=== PATIENT | female | born 1995 | race African-American/Black ===

== ENCOUNTER 2017-08-31 00:29 | Emergency (ER) | payer MEDICAID ==
[2017-08-31] MEDS ORDERED: ONDANSETRON 4 MG TAB.RAPDIS PO ONE (03:43)
[2017-08-31 04:30] LABS: ABSOLUTE LYMPHOCYTES (AUTO) 0.6 10^3/uL (0.5-4.7); ABSOLUTE MONOCYTES (AUTO) 0.4 10^3/uL (0.1-1.4); ABSOLUTE NEUT (AUTO) 6.7 10^3/uL (1.7-8.2); BASOPHILS % (AUTO) 0.3 % (0-2); EOSINOPHILS % (AUTO) 0.1 % (0-6); HEMATOCRIT 35.4 % (36.0-47.0); HEMOGLOBIN 11.8 g/dL (12.0-15.5); LYMPHOCYTES % (AUTO) 7.7 % (13-45); MEAN CORPUSCULAR HEMOGLOBIN 25.8 pg (27.0-33.4); MEAN CORPUSCULAR HGB CONC 33.2 g/dL (32.0-36.0); MEAN CORPUSCULAR VOLUME 78 fl (80-97); MONOCYTES % (AUTO) 4.7 % (3-13); PLATELET COUNT 280 10^3/uL (150-450); RED BLOOD COUNT 4.55 10^6/uL (3.72-5.28); RED CELL DISTRIBUTION WIDTH 14.2 % (11.5-14.0); SEGMENTED NEUTROPHILS % (AUTO) 87.2 % (42-78); TOTAL CELLS COUNTED % (AUTO) 100 %; WHITE BLOOD COUNT 7.7 10^3/uL (4.0-10.5)
[2017-08-31 04:36] LABS: APPEARANCE,URINE SLIGHTLY-CLOUDY; BILIRUBIN,URINE NEGATIVE (NEGATIVE); COLOR,URINE AMBER; GLUCOSE, URINE NEGATIVE (NEGATIVE); KETONES,URINE 80 mg/dL (NEGATIVE); LEUKOCYTE ESTERASE,URINE TRACE (NEGATIVE); NITRITE,URINE NEGATIVE (NEGATIVE); PROTEIN,URINE 30 mg/dL (NEGATIVE); URINE SPECIFIC GRAVITY 1.031
[2017-08-31 04:45] LABS: ALANINE AMINOTRANSFERASE 77 U/L (5-35); ALBUMIN 4.3 g/dL (3.7-5.6); ALKALINE PHOSPHATASE 62 U/L (50-135); ANION GAP 12 (5-19); ASPARTATE AMINO TRANSFERASE 47 U/L (5-30); BILIRUBIN,DIRECT 0.3 mg/dL (0.0-0.4); BILIRUBIN,TOTAL 0.4 mg/dL (0.2-1.3); BLOOD UREA NITROGEN 13 mg/dL (7-20); CALCIUM 10.2 mg/dL (8.4-10.2); CARBON DIOXIDE 24 mmol/L (22-30); CHLORIDE 103 mmol/L (98-107); GLUCOSE 85 mg/dL (75-110); LIPASE 67.8 U/L (23-300); POTASSIUM 4.9 mmol/L (3.6-5.0); SODIUM 138.9 mmol/L (137-145); TOTAL PROTEIN 7.6 g/dL (6.3-8.2)
[2017-08-31] MEDS ORDERED: NORMAL SALINE 1000 ML 1,000 ML IV ONE (05:45)
--- NOTE | 2017-08-31 05:52 | ER Document Report ---
ED General - General Chief Complaint: Abdominal Pain Stated Complaint: ABDOMINAL PAIN Time Seen by Provider: 08/31/17 03:40 Mode of Arrival: Ambulatory Information source: Patient Notes: 21-year-old female patient presents with abdominal pain and vomiting. Patient reports the pain is in her left lower quadrant and started yesterday. Patient reports that she had vomited 4 today. Patient denies any diarrhea but reports constipation. Patient denies any urinary symptoms and denies any fever. Patient reports that she is approximately 14 weeks . TRAVEL OUTSIDE OF THE [place] IN LAST 30 DAYS: No - Related Data Allergies/Adverse Reactions: No Known Allergies Allergy (Unverified 08/31/17 00:34) Past Medical History - General Information source: Patient - Social History Smoking Status: Never Smoker Chew tobacco use (# tins/day): No Frequency of alcohol use: None Drug Abuse: None Family History: Reviewed & Not Pertinent Patient has suicidal ideation: No Patient has homicidal ideation: No - Medical History Medical History: Negative Renal/ Medical History: Denies: Hx Peritoneal Dialysis Surgical Hx: Negative Review of Systems - Review of Systems Constitutional: No symptoms reported EENT: No symptoms reported Cardiovascular: No symptoms reported Respiratory: No symptoms reported Gastrointestinal: See HPI Genitourinary: No symptoms reported Female Genitourinary: No symptoms reported Musculoskeletal: No symptoms reported Skin: No symptoms reported Hematologic/Lymphatic: No symptoms reported Neurological/Psychological: No symptoms reported Physical Exam - Vital signs Vitals: Temp Pulse Resp BP Pulse Ox 99.3 F 108 H 16 126/74 H 99 08/31/17 00:35 08/31/17 00:35 08/31/17 00:35 08/31/17 00:35 08/31/17 00:35 - Notes Notes: PHYSICAL EXAMINATION: GENERAL: Well-appearing, well-nourished and in no acute distress. HEAD: Atraumatic, normocephalic. EYES: Pupils equal round and reactive to light, extraocular movements intact, conjunctiva are normal. ENT: Nares patent, oropharynx clear without exudates. Moist mucous membranes. NECK: Normal range of motion, supple without lymphadenopathy LUNGS: Breath sounds clear to auscultation bilaterally and equal. No wheezes rales or rhonchi. HEART: Regular rate and rhythm without murmurs ABDOMEN: Soft, nontender, nondistended abdomen. No guarding, no rebound. No masses appreciated. Female : No CVA tenderness Musculoskeletal: Normal range of motion, no pitting or edema. No cyanosis. NEUROLOGICAL: Cranial nerves grossly intact. Normal speech, normal gait. Normal sensory, motor exams PSYCH: Normal mood, normal affect. SKIN: Warm, Dry, normal turgor, no rashes or lesions noted. Course - Re-evaluation Re-evalutation: Otherwise healthy 21-year-old female presents with complaint of abdominal pain and vomiting. Patient reports abdominal pain is in the left lower quadrant has been present since yesterday. Patient's abdomen soft, mildly tender to left lower quadrant with no guarding, no rebound and no signs of peritonitis. CBC, comprehensive and lipase are all unremarkable. Patient with ketones in her urine patient patient reports vomiting 4 today. Will rehydrate patient with 1 L normal saline and provide patient with Zofran. Patient remains asymptomatic with stable vital signs. Patient reports that she is feeling much better after receiving the IV fluids. Patient will be discharged home with prescription for Zofran if needed. Patient reports that she has an appointment already established with her OB on Saturday. Patient will return to emergency department if she develops worsening abdominal pain, persistent vomiting or develops a fever with any of the above symptoms. - Vital Signs Vital signs: Temp Pulse Resp BP Pulse Ox 98.8 F 86 20 129/74 H 100 08/31/17 07:51 08/31/17 07:51 08/31/17 07:51 08/31/17 07:51 08/31/17 07:51 - Laboratory Result Diagrams: 08/31/17 04:00 08/31/17 04:00 Laboratory results interpreted by me: 08/31/17 08/31/17 08/31/17 04:00 04:00 04:00 Hgb 11.8 L Hct 35.4 L MCV 78 L MCH 25.8 L RDW 14.2 H Seg Neutrophils % 87.2 H Lymphocytes % 7.7 L AST 47 H ALT 77 H Urine Protein 30 H Urine Ketones 80 H Urine Urobilinogen 2.0 H Ur Leukocyte Esterase TRACE H Urine Ascorbic Acid 20 H Discharge - Discharge Clinical Impression: Dehydration Vomiting Qualifiers: Vomiting type: unspecified Vomiting Intractability: unspecified Nausea presence : unspecified Qualified Code(s): R11.10 - Vomiting, unspecified Condition: Stable Disposition: HOME, SELF-CARE Additional Instructions: Vomiting Vomiting (or nausea without vomiting) can be caused by many other different problems. It can mean that something's wrong with the stomach, such as ulcers or inflammation or the intestinal tract, such as appendicitis. But it can also be a symptom of a problem that has nothing to do with the stomach or intestines. Vomiting is common with severe headaches, earaches, tonsillitis, and kidney infections, etc. We see it with pneumonia or heart attacks. Drugs can cause nausea and vomiting. Many abdominal problems cause vomiting; for example, gallstones, kidney stones, pancreatitis, and intestinal obstruction ( blocked bowels). In most cases, curing the vomiting depends on fixing the problem that caused it. For temporary relief, we may use an anti-nausea medicine. For home use, we can prescribe suppositories, chewable pills, pills that dissolve in the mouth, or liquid anti-nausea drugs. If the vomiting seems to be caused by a problem in the stomach, acid-suppressing drugs may be prescribed as well. It's important to avoid dehydration. Sip small amounts of clear liquids ( soft drinks, tea, broth, etc) . Try to take fluids frequently even if you are vomiting to prevent dehydration. Take increasing amounts of fluid and when liquids are being consumed successfully, advance to small amounts of bland food (toast, soups, mashed potatoes, etc.) until you are able to resume a regular diet. Avoid aspirin, tobacco, and alcohol. If the vomiting worsens, if the problem that's making you vomit worsens, or if there's evidence of bleeding in the stomach (such as black, tarry stool, or bloody or black vomit), you should return immediately. Also, return if abdominal pain worsens or becomes localized to one area or you develop high fever. Call your doctor if you aren't improved in 24 hours. Intravenous (IV) Fluids As part of your care today, you received intravenous (IV) fluids. IV fluids are administered to patients who are dehydrated or to those who have certain chemical (electrolyte) abnormalities that need correcting. Please increase the fiber in your diet. Please be sure to drink plenty of fluids. Please follow-up with your ENROLLED NURSE next week for follow-up. Please return to the emergency department if you develop worsening abdominal pain, fever or vomiting to the point where you are unable to hold any fluids down. Prescriptions: Ondansetron [Zofran Odt 4 mg Tablet] 1 - 2 tab PO Q4H PRN #15 tab.rapdis PRN Reason: For Nausea/Vomiting Referrals: MURIEL VALLADARES MD [Primary Care Provider] - Follow up as needed
[2017-08-31 08:00] VITALS: BP 129/74
== END 2017-08-31 08:00 | disposition home or self-care (01) ==
LOC: ER 00:29
DX: O21.9 Vomiting of pregnancy, unspecified (principal); O99.280 Endocrine, nutritional and metabolic diseases complicating pregnancy, unspecified trimester; E86.0 Dehydration; O99.619 Diseases of the digestive system complicating pregnancy, unspecified trimester; K59.00 Constipation, unspecified; O26.899 Other specified pregnancy related conditions, unspecified trimester; R10.32 Left lower quadrant pain; Z3A.00 Weeks of gestation of pregnancy not specified
CPT/HCPCS: 99284; 96360; 36415; 83690; 85025; 80053; 81001; S0119; J7030

== ENCOUNTER 2018-05-10 00:52 | Emergency (ER) | payer MEDICAID ==
--- NOTE | 2018-05-10 03:07 | ER Document Report ---
ED General - General Chief Complaint: 4 Stated Complaint: COUGH Time Seen by Provider: 05/10/18 01:47 Primary Care Provider: MURIEL VALLADARES MD [Primary Care Provider] - Follow up as needed Notes: Patient is a 22-year-old female without chronic medical problems who presents with 24 hours of nasal congestion, cough and sputum production. She is here with her child with similar symptoms. She has not trying to improve her symptoms. Nothing is been noted to worsen her symptoms. Notes a history of similar symptoms in the past with upper respiratory infections. Has not seen her primary care doctor regarding today's concerns. Denies shortness of breath, fever or constitutional symptoms. TRAVEL OUTSIDE OF THE [place] IN LAST 30 DAYS: No - Related Data Allergies/Adverse Reactions: No Known Allergies Allergy (Unverified 08/31/17 00:34) Past Medical History - General Information source: Patient - Social History Smoking Status: Never Smoker Frequency of alcohol use: None Drug Abuse: None Lives with: Family Family History: Reviewed & Not Pertinent Renal/ Medical History: Denies: Hx Peritoneal Dialysis Review of Systems - Review of Systems Notes: Constitutional: Negative for fever. HENT: Negative for sore throat. Positive for nasal congestion Eyes: Negative for visual changes. Cardiovascular: Negative for chest pain. Respiratory: Negative for shortness of breath. Positive for cough Gastrointestinal: Negative for abdominal pain, vomiting or diarrhea. Genitourinary: Negative for dysuria. Musculoskeletal: Negative for back pain. Skin: Negative for rash. Neurological: Negative for headaches, weakness or numbness. 10 point ROS negative except as marked above and in HPI. Physical Exam - Vital signs Vitals: Temp Pulse Resp BP Pulse Ox 98.6 F 92 16 137/88 H 99 05/10/18 01:39 05/10/18 01:39 05/10/18 01:39 05/10/18 01:39 05/10/18 01:39 Interpretation: Normal Notes: PHYSICAL EXAMINATION: GENERAL: Well-appearing, well-nourished and in no acute distress. HEAD: Atraumatic, normocephalic. EYES: Pupils equal round and reactive to light, extraocular movements intact, sclera anicteric, conjunctiva are normal. ENT: nares patent, oropharynx clear without exudates. Moist mucous membranes. NECK: Normal range of motion, supple without lymphadenopathy LUNGS: Breath sounds clear to auscultation bilaterally and equal. No wheezes rales or rhonchi. HEART: Regular rate and rhythm without murmurs ABDOMEN: Soft, nontender, normoactive bowel sounds. No guarding, no rebound. No masses appreciated. EXTREMITIES: Normal range of motion, no pitting or edema. No cyanosis. NEUROLOGICAL: No focal neurological deficits. Moves all extremities spontaneously and on command. PSYCH: Normal mood, normal affect. SKIN: Warm, Dry, normal turgor, no rashes or lesions noted. Course - Re-evaluation Re-evalutation: 05/10/18 03:02 Presentation is most consistent with a viral upper respiratory infection. Patient is overall well appearance, vitals within normal limits, well-hydrated. Patient denies any headache, neck pain, and has no evidence of meningismus on examination. Lungs are clear bilaterally. No evidence of respiratory distress. Based on clinical exam and history, I do not suspect an acute pneumonia, meningitis, strep pharyngitis, or an acute encephalitis. No laboratory or imaging testing is indicated at this time. At this time will discharge with return precautions and follow-up recommendations. Verbal discharge instructions given a the bedside and opportunity for questions given. Medication warnings reviewed. Patient is in agreement with this plan and has verbalized understanding of return precautions and the need for primary care follow-up in the next 24-72 hours. - Vital Signs Vital signs: Temp Pulse Resp BP Pulse Ox 98.6 F 92 16 137/88 H 99 05/10/18 01:39 05/10/18 01:39 05/10/18 01:39 05/10/18 01:39 05/10/18 01:39 Discharge - Discharge Clinical Impression: Viral upper respiratory infection, Cough Condition: Good Disposition: HOME, SELF-CARE Additional Instructions: Your symptoms are most likely due to a viral infection it should resolve over the next 7-14 days. You should take [id number] guanfacine per bottle instructions to help thin the mucus. For nasal congestion: I would recommend that you get [id number] oxymetazoline also known is afrin. Use only per bottle instructions and be sure to never use this for more than 3 days if you can develop severe rebound congestion. You may also use tylenol or ibuprofen as needed for aches and thorat discomfort. Please be sure to drink plenty of fluids and get rest. Return to the emergency department he began having difficulty breathing, chest pain, persistent vomiting, or any other symptoms that are concerning to you. Referrals: MURIEL VALLADARES MD [Primary Care Provider] - Follow up as needed
[2018-05-10 03:27] VITALS: BP 140/102
== END 2018-05-10 03:33 | disposition home or self-care (01) ==
LOC: ER 00:52
DX: J06.9 Acute upper respiratory infection, unspecified (principal); B97.89 Other viral agents as the cause of diseases classified elsewhere; R05 Cough; R09.81 Nasal congestion
CPT/HCPCS: 99283

== ENCOUNTER 2018-06-20 13:56 | Emergency (ER) | payer MEDICAID ==
[2018-06-20] MEDS ORDERED: ONDANSETRON HCL INJ/PF 4 MG/2 ML SDV IV ONE (14:37)
[2018-06-20] MEDS ORDERED: NORMAL SALINE 1000 ML 1,000 ML IV ONE (14:37)
--- NOTE | 2018-06-20 14:39 | ER Document Report ---
ED Medical Screen (RME) - General Chief Complaint: Abdominal Pain Stated Complaint: ABDOMINAL PAIN Time Seen by Provider: 06/20/18 14:26 Primary Care Provider: MURIEL VALLADARES MD [Primary Care Provider] - Follow up as needed Mode of Arrival: Ambulatory Information source: Patient Notes: Patient is a 22-year-old female who presents the emergency department with epigastric pain that radiates to the right upper quadrant and left upper quadrant with nausea, vomiting and diarrhea. Patient reports all of her symptoms started approximately 2 hours prior to arrival. She does state that she has been around people who have had the "stomach bug". Patient denies any past medical history other than a . Exam: Tenderness to palpation to epigastric area. I have greeted and performed a rapid initial assessment of this patient. A comprehensive ED assessment and evaluation of the patient, analysis of test results and completion of the medical decision making process will be conducted by additional ED providers. Dictation of this chart was performed using voice recognition software; therefore, there may be some unintended grammatical errors. TRAVEL OUTSIDE OF THE [place] IN LAST 30 DAYS: No - Related Data Allergies/Adverse Reactions: No Known Allergies Allergy (Verified 05/10/18 03:15) Past Medical History Renal/ Medical History: Denies: Hx Peritoneal Dialysis Past Surgical History: Reports: Hx Section Physical Exam - Vital signs Vitals: Temp Pulse Resp BP Pulse Ox 98.8 F 96 15 150/97 H 100 06/20/18 14:13 06/20/18 14:13 06/20/18 14:13 06/20/18 14:13 06/20/18 14:13 Course - Vital Signs Vital signs: Temp Pulse Resp BP Pulse Ox 98.8 F 96 15 150/97 H 100 06/20/18 14:13 06/20/18 14:13 06/20/18 14:13 06/20/18 14:13 06/20/18 14:13 Doctor's Discharge - Discharge Referrals: MURIEL VALLADARES MD [Primary Care Provider] - Follow up as needed
[2018-06-20 15:03] LABS: ABSOLUTE EOSINOPHILS # (AUTO) 0.1 10^3/uL (0.0-0.6); ABSOLUTE LYMPHOCYTES (AUTO) 1.5 10^3/uL (0.5-4.7); ABSOLUTE MONOCYTES (AUTO) 0.4 10^3/uL (0.1-1.4); ABSOLUTE NEUT (AUTO) 5.9 10^3/uL (1.7-8.2); BASOPHILS % (AUTO) 0.6 % (0-2); EOSINOPHILS % (AUTO) 1.1 % (0-6); HEMATOCRIT 33.5 % (36.0-47.0); HEMOGLOBIN 11.1 g/dL (12.0-15.5); LYMPHOCYTES % (AUTO) 18.8 % (13-45); MEAN CORPUSCULAR HEMOGLOBIN 25.3 pg (27.0-33.4); MEAN CORPUSCULAR HGB CONC 33.3 g/dL (32.0-36.0); MEAN CORPUSCULAR VOLUME 76 fl (80-97); MONOCYTES % (AUTO) 5.5 % (3-13); PLATELET COUNT 288 10^3/uL (150-450); RED CELL DISTRIBUTION WIDTH 14.7 % (11.5-14.0); TOTAL CELLS COUNTED % (AUTO) 100 %
[2018-06-20 15:20] LABS: APPEARANCE,URINE SLIGHTLY-CLOUDY; BILIRUBIN,URINE NEGATIVE (NEGATIVE); COLOR,URINE YELLOW; GLUCOSE, URINE NEGATIVE (NEGATIVE); KETONES,URINE NEGATIVE (NEGATIVE); LEUKOCYTE ESTERASE,URINE NEGATIVE (NEGATIVE); NITRITE,URINE NEGATIVE (NEGATIVE); PROTEIN,URINE 30 mg/dL (NEGATIVE); URINE SPECIFIC GRAVITY 1.023; UROBILINOGEN,URINE NEGATIVE mg/dL (<2.0)
[2018-06-20] MEDS ORDERED: FAMOTIDINE INJ/PF 20 MG/2 ML SDV IV ONE (16:00)
--- NOTE | 2018-06-20 16:03 | ER Document Report ---
Addendum entered and electronically signed by JOSETTE MEZA PA-C 06/20/18 19:11: Discharge - Discharge Clinical Impression: Gastroenteritis Condition: Good Disposition: HOME, SELF-CARE Instructions: Antinausea Medication ([facility]), Clear Liquid Diet ([facility]), Gastroenteritis (adult) ([facility]), Intravenous (IV) Fluids ([facility]), Vomiting ([facility]) Additional Instructions: If you are actively vomiting, try the rectal suppository as this will be absorbed into your bloodstream to your rectum. This often will help settle down your vomiting when there is no other medication that will help. Prescriptions: Promethazine HCl [Phenergan 25 mg Tablet] 25 mg PO Q6HP PRN #10 tablet PRN Reason: Promethazine HCl 25 mg RC Q6H #10 supp.rect Forms: Return to School Referrals: [facility] [Provider Group] - Follow up as needed MURIEL VALLADARES MD [Primary Care Provider] - Follow up as needed Print Language: New Zealander Original Note: ED General - General Chief Complaint: Abdominal Pain Stated Complaint: ABDOMINAL PAIN Time Seen by Provider: 06/20/18 14:26 Primary Care Provider: MURIEL VALLADARES MD [Primary Care Provider] - Follow up as needed Mode of Arrival: Ambulatory Information source: Patient TRAVEL OUTSIDE OF THE [place] IN LAST 30 DAYS: No - HPI Patient complains to provider of: Left upper quadrant and epigastric pain and n ausea and vomiting Onset: This morning Onset/Duration: Sudden Quality of pain: Burning Severity: Moderate Pain Level: 3 Associated symptoms: denies: Chills, Fever Exacerbated by: Denies Relieved by: Denies Similar symptoms previously: No Recently seen / treated by doctor: No Notes: 22-year-old otherwise healthy -[place] female coming with left upper quadrant pain radiating to the epigastrium. Some nausea and vomiting. No fevers or chills. No diarrhea. States that she is under increased amount of stress. - Related Data Allergies/Adverse Reactions: No Known Allergies Allergy (Verified 05/10/18 03:15) Past Medical History - General Information source: Patient - Social History Smoking Status: Never Smoker Family History: Reviewed & Not Pertinent Renal/ Medical History: Denies: Hx Peritoneal Dialysis Past Surgical History: Reports: Hx Section Review of Systems - Review of Systems Notes: Constitutional: No fevers. No chills. EENT: No eye redness. No eye pain. No ear pain. No sore throat. Cardiovascular: No chest pain. No palpitations. Respiratory: No cough. No shortness of breath. No respiratory distress. Gastrointestinal: Positive for abdominal pain, nausea, and vomiting. No diarrhea. Genitourinary: Atraumatic. No lesions. No pain. No discharge. Musculoskeletal: Atraumatic. No swelling. No deformities. Skin: No rash or lesions. Lymphatic: No swollen lymph nodes. Neurologic: No headache. No syncope. Psychiatric: No suicidal or homicidal ideation. Physical Exam - Vital signs Vitals: Temp Pulse Resp BP Pulse Ox 98.8 F 96 15 150/97 H 100 06/20/18 14:13 06/20/18 14:13 06/20/18 14:13 06/20/18 14:13 06/20/18 14:13 - Notes Notes: General: Well-developed, well-nourished. In no acute distress. Non-toxic appearing. Cardiac: Well-perfused. Regular rate and rhythm. No murmurs, rubs, or gallops. Pulmonary: No respiratory distress. No cyanosis. Bilateral lung fiels are clear to auscultation. Abdominal: Non-distended. Non-rigid. Bowels sounds are present in all four quadrants. No guarding or rebound. Minimal tenderness to palpation in the epigastrium. HEENT: Head is atraumatic. Conjunctivae not reddened. No tearing. PERRL. EOMI. Orbits atraumatic. No periorbital swelling or erythema. Oropharynx is without erythema, swelling, or exudates. Neck: Supple. No adenopathy. No meningismus. Dermatologic: Warm with good turgor. No rash. Atraumatic. Chest: Atraumatic. No chest wall tenderness to palpation. Musculoskeletal: Moves all extremities well. No range of motion deficits. no muscular or joint tenderness. No paraspinal muscle tenderness. no midline spinal tenderness or step-off. Genitourinary: Examination deferred Neurologic: No gross neurologic deficits. Psychiatric: Normal mood. Course - Re-evaluation Re-evalutation: 06/20/18 16:03 Patient still has IV fluids running. We will go ahead and wait for this to get done. Also in the meantime will give Pepcid 20 IV and recheck. 06/20/18 19:05 Patient had a big episode of diarrhea as well as emesis. Seems to be feeling better now. Labs are all back looks normal. Will treat this like a viral fabiola roenteritis. Give her prescription for oral and rectal Phenergan depending on how well she is able to tolerate fluids. - Vital Signs Vital signs: Temp Pulse Resp BP Pulse Ox 98.8 F 96 15 150/97 H 100 06/20/18 14:13 06/20/18 14:13 06/20/18 14:13 06/20/18 14:13 06/20/18 14:13 - Laboratory Result Diagrams: 06/20/18 14:48 06/20/18 18:10 Laboratory results interpreted by me: 06/20/18 06/20/18 06/20/18 14:48 14:48 18:10 Hgb 11.1 L Hct 33.5 L MCV 76 L MCH 25.3 L RDW 14.7 H AST 49 H ALT 86 H Urine Protein 30 H Discharge - Discharge Clinical Impression: Gastroenteritis Condition: Good Disposition: HOME, SELF-CARE Instructions: Antinausea Medication ([facility]), Clear Liquid Diet ([facility]), Gastroenteritis (adult) ([facility]), Intravenous (IV) Fluids ([facility]), Vomiting ([facility]) Additional Instructions: If you are actively vomiting, try the rectal suppository as this will be absorbed into your bloodstream to your rectum. This often will help settle down your vomiting when there is no other medication that will help. Forms: Return to School Referrals: MURIEL VALLADARES MD [Primary Care Provider] - Follow up as needed [facility] [Provider Group] - Follow up as needed Print Language: [place] Zealander
[2018-06-20] MEDS ORDERED: METOCLOPRAMIDE HCL INJ/PF 10 MG/2 ML SDV IV ONE (18:02)
[2018-06-20 18:51] LABS: ALANINE AMINOTRANSFERASE 86 U/L (9-52); ALBUMIN 4.3 g/dL (3.5-5.0); ALKALINE PHOSPHATASE 90 U/L (38-126); ANION GAP 9 (5-19); ASPARTATE AMINO TRANSFERASE 49 U/L (14-36); BILIRUBIN,DIRECT 0.2 mg/dL (0.0-0.4); BILIRUBIN,TOTAL 0.5 mg/dL (0.2-1.3); BLOOD UREA NITROGEN 15 mg/dL (7-20); CALCIUM 9.4 mg/dL (8.4-10.2); CARBON DIOXIDE 22 mmol/L (22-30); CHLORIDE 107 mmol/L (98-107); GLUCOSE 100 mg/dL (75-110); POTASSIUM 4.1 mmol/L (3.6-5.0); TOTAL PROTEIN 7.5 g/dL (6.3-8.2)
[2018-06-20 19:21] VITALS: BP 141/88
== END 2018-06-20 19:20 | disposition home or self-care (01) ==
LOC: ER 13:56
DX: K52.9 Noninfective gastroenteritis and colitis, unspecified (principal); R10.13 Epigastric pain; R10.12 Left upper quadrant pain; R11.2 Nausea with vomiting, unspecified
CPT/HCPCS: 99284; 96361; 96374; 96375; 36415; 85025; 80053; 81001; J2765; J2405; J7030; S0028

== ENCOUNTER 2019-10-18 19:11 | Outpatient (CLI) | payer MEDICAID ==
[2019-10-18 19:50] LABS: APPEARANCE,URINE SLIGHTLY-CLOUDY; BILIRUBIN,URINE NEGATIVE (NEGATIVE); GLUCOSE, URINE NEGATIVE (NEGATIVE); KETONES,URINE NEGATIVE (NEGATIVE); LEUKOCYTE ESTERASE,URINE NEGATIVE (NEGATIVE); NITRITE,URINE NEGATIVE (NEGATIVE); PROTEIN,URINE 100 mg/dL (NEGATIVE); URINE SPECIFIC GRAVITY 1.029
[2019-10-18 19:53] LABS: COLOR,URINE DARK YELLOW
--- NOTE | 2019-10-18 20:29 | Non Stress Test Report ---
Non Stress Test Datetime Report Generated by CPN: 10/18/2019 20:29 DEMOGRAPHIC EGA NST: 37.4 INDICATION Indication for Study (NST) Other: gestational age > 32 weeks VITAL SIGNS Temperature - NST: 98.5 Pulse - NST: 114 RESP - NST: 17 NBPSYS NST: 116 NBPDIA NST: 68 MONITORING Monitor Explained: Monitor Explained; Test Explained; Patient Verbalized Understanding Time on Monitor: 10/18/2019 19:42 Time off Monitor: 10/18/2019 20:18 NST Duration: 36 NST INTERVENTIONS NST Interventions: PO Hydration; Reposition Patient Physician Notified NST: dr. madrid BABY A: [id number] BABY A Movement : Present Contraction Frequency : irreg FHR Baseline : 130 Accelerations : 15X15 Decelerations : None Variability : Moderate 6-25bpm NST Review: Meets Criteria for Reactive NST NST Review and Verified By : Kalin Musa RN NST Results: Reactive NST REPORT Report Trigger: Send Report
[2019-10-18 20:32] LABS: URINE AMPHETAMINES SCREEN NEGATIVE; URINE BARBITURATES SCREEN NEGATIVE; URINE BENZODIAZEPINES SCREEN NEGATIVE; URINE COCAINE SCREEN NEGATIVE; URINE MARIJUANA (THC) SCREEN NEGATIVE; URINE METHADONE SCREEN NEGATIVE; URINE PHENCYCLIDINE SCREEN NEGATIVE
== END 2019-10-18 20:53 | disposition home or self-care (01) ==
LOC: LC 19:11
PROVIDERS: ATTEND Obstetrics & Gynecology Gynecology
DX: O12.03 Gestational edema, third trimester (principal); Z3A.37 37 weeks gestation of pregnancy
CPT/HCPCS: 80307; 81005

== ENCOUNTER 2019-11-03 12:36 | Inpatient (IN) | payer MEDICAID ==
[2019-11-03] MEDS ORDERED: CEFAZOLIN SODIUM 1 GM in DEXTROSE 5%-WATER 50 ML IV PRN (12:48)
[2019-11-03] MEDS ORDERED: CEFAZOLIN SODIUM 2 GM in DEXTROSE 5%-WATER 50 ML IV PRN (12:59)
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
[2019-11-03 13:26] LABS: ABSOLUTE MONOCYTES (AUTO) 0.4 10^3/uL (0.1-1.4); ABSOLUTE NEUT (AUTO) 3.6 10^3/uL (1.7-8.2); BASOPHILS % (AUTO) 0.4 % (0-2); EOSINOPHILS % (AUTO) 0.5 % (0-6); HEMATOCRIT 33.4 % (36.0-47.0); HEMOGLOBIN 11.3 g/dL (12.0-15.5); LYMPHOCYTES % (AUTO) 32.3 % (13-45); MEAN CORPUSCULAR HEMOGLOBIN 26.8 pg (27.0-33.4); MEAN CORPUSCULAR HGB CONC 33.7 g/dL (32.0-36.0); MEAN CORPUSCULAR VOLUME 80 fl (80-97); MONOCYTES % (AUTO) 6.7 % (3-13); PLATELET COUNT 172 10^3/uL (150-450); SEGMENTED NEUTROPHILS % (AUTO) 60.1 % (42-78); TOTAL CELLS COUNTED % (AUTO) 100 %
[2019-11-03 13:29] LABS: APPEARANCE,URINE SLIGHTLY-CLOUDY; BILIRUBIN,URINE NEGATIVE (NEGATIVE); GLUCOSE, URINE NEGATIVE (NEGATIVE); KETONES,URINE NEGATIVE (NEGATIVE); LEUKOCYTE ESTERASE,URINE NEGATIVE (NEGATIVE); NITRITE,URINE NEGATIVE (NEGATIVE); PROTEIN,URINE 100 mg/dL (NEGATIVE); URINE SPECIFIC GRAVITY 1.028
[2019-11-03 13:30] LABS: COLOR,URINE YELLOW
[2019-11-03 13:38] LABS: URINE AMPHETAMINES SCREEN NEGATIVE; URINE BARBITURATES SCREEN NEGATIVE; URINE BENZODIAZEPINES SCREEN NEGATIVE; URINE COCAINE SCREEN NEGATIVE; URINE MARIJUANA (THC) SCREEN NEGATIVE; URINE METHADONE SCREEN NEGATIVE; URINE PHENCYCLIDINE SCREEN NEGATIVE
--- NOTE | 2019-11-03 14:00 | Non Stress Test Report ---
Non Stress Test Datetime Report Generated by CPN: 11/03/2019 13:59 DEMOGRAPHIC EGA NST: 39.6 INDICATION Indication for Study (NST) Other: Repeat C/S VITAL SIGNS Temperature - NST: 98.0 Pulse - NST: 106 RESP - NST: 17 NBPSYS NST: 130 NBPDIA NST: 82 MONITORING Monitor Explained: Monitor Explained; Test Explained; Patient Verbalized Understanding Time on Monitor: 11/03/2019 13:08 Time off Monitor: 11/03/2019 13:53 Time off Monitor: 11/03/2019 13:59 NST Duration: 45 NST INTERVENTIONS NST Interventions: Reposition Patient Physician Notified NST: Dr. Joshua BABY A: [id number] BABY A Movement : Present Contraction Frequency : occasional FHR Baseline : 135 Accelerations : 15X15 Accelerations : 15X15 Decelerations : None Decelerations : Early Variability : Moderate 6-25bpm Variability : Moderate 6-25bpm NST Review: Meets Criteria for Reactive NST NST Review: Meets Criteria for Reactive NST NST Review and Verified By : Ryan Diaz RN NST Results: Reactive NST REPORT Report Trigger: Send Report
[2019-11-03] MEDS ORDERED: OXYTOCIN 10 UNIT/ML VIAL ONE (14:29)
[2019-11-03] MEDS ORDERED: FENTANYL CITRATE INJ/PF 100 MCG/2 ML AMPUL ONE (14:29)
[2019-11-03] MEDS ORDERED: RINGERS SOLUTION,LACTATED 1,000 ML IV ONE (14:29)
[2019-11-03] MEDS ORDERED: EPHEDRINE SULFATE INJ 50 MG/1 ML AMPULE ONE (14:29)
[2019-11-03] MEDS ORDERED: KETOROLAC TROMETHAMINE INJ/PF 30 MG/1 ML SDV ONE (14:29)
[2019-11-03] MEDS ORDERED: MIDAZOLAM 2 MG/2 ML INJ ONE (14:30)
[2019-11-03] MEDS ORDERED: ACETAMINOPHEN 1,000 MG/100 ML RTUPB IV ONE (14:30)
[2019-11-03] MEDS ORDERED: OXYTOCIN/0.9 % SODIUM CHLORIDE 30 UNIT/500 ML RTUINJ ONE (14:30)
[2019-11-03] MEDS ORDERED: ONDANSETRON HCL INJ/PF 4 MG/2 ML SDV ONE (14:30)
[2019-11-03] MEDS ORDERED: CEFAZOLIN 2 GM/D5W RTU 2 GM/50 ML RTUPB IV ONE (14:53)
[2019-11-03] MEDS ORDERED: CITRIC ACID/SODIUM CITRATE ORAL SOLN 15 ML UDCUP ONE (14:53)
[2019-11-03] MEDS ORDERED: CITRIC ACID/SODIUM CITRATE ORAL SOLN 15 ML UDCUP PO ONE (15:00)
[2019-11-03] MEDS ORDERED: ROPIVACAINE HCL 0.5% INJ/PF (5 MG/1 ML) 30 ML SDV ONE (15:49)
--- NOTE | 2019-11-03 15:50 | PDOC DELIVERY SUMMARY ---
Delivery Summary - Maternal Risk Factors: Previous Ruptured Membranes: AROM Fluids: Clear - Delivery Labor: Not In Labor Presentation: Vertex Heart Rate Monitoring: Done Pre-Operatively, Externally Support Person Present: Yes : Scheduled Placenta: Within Normal Limits Nuchal Cord: No - Medications Type of Anesthesia:: Spinal
[2019-11-03] MEDS ORDERED: ACETAMINOPHEN 325 MG TABLET PO PRN (15:52)
[2019-11-03] MEDS ORDERED: RINGERS SOLUTION,LACTATED 1,000 ML IV PRN (15:52)
[2019-11-03] MEDS ORDERED: PROMETHAZINE HCL INJ 25 MG/1 ML VIAL IV PRN (15:52)
[2019-11-03] MEDS ORDERED: MEASLES,MUMPS&RUBELLA VACC/PF 0.5 ML VIAL SUBCUT PRN (15:52)
[2019-11-03] MEDS ORDERED: ACETAMINOPHEN 1,000 MG/100 ML RTUPB IV PRN (15:52)
[2019-11-03] MEDS ORDERED: OXYTOCIN/0.9 % SODIUM CHLORIDE 30 UNIT/500 ML RTUINJ IV PRN (15:52)
[2019-11-03] MEDS ORDERED: OXYCODONE-ACETAMINOPHEN 5-325 MG TABLET PO PRN (15:52)
[2019-11-03] MEDS ORDERED: DIPH/PERTUSS(ACELL)/TETANUS VAC/PF 0.5 ML SYR (>=10YO) IM PRN (15:52)
--- NOTE | 2019-11-03 15:52 | Operative Report ---
Operative Report DATE OF SURGERY: 11/03/19 PREOPERATIVE DIAGNOSIS: IUP prior section hypertension POSTOPERATIVE DIAGNOSIS: Same OPERATION: Repeat low transverse with a viable . SURGEON: FIDE WEST ANESTHESIA: Spinal TISSUE REMOVED OR ALTERED: Placenta COMPLICATIONS: None ESTIMATED BLOOD LOSS: 1200 cc INTRAOPERATIVE FINDINGS: Dense adhesions PROCEDURE: The patient was taken to the operating room where spinal anesthesia was obtained and found to be adequate. She was then prepped and draped in the normal sterile fashion and placed in the dorsal supine position with a leftward tilt. A Pfannenstiel skin incision was then made and carried through to the underlying layers of the fascia with the scalpel. The fascia was incised in the midline and the incision extended laterally with the De Los Santos scissors. The superior aspect of the fascial incision was then grasped with Mina clamps elevated and the underlying rectus muscles dissected off bluntly. Attention was then turned to the inferior aspect of the fascial incision which in a similar fashion was grasped, tented up with Marii clamps, and the rectus muscles dissected off bluntly. The rectus muscles were then in the midline and the peritoneum at the amount identified and entered bluntly. The peritoneal incision was then extended superiorly and inferiorly with good visualization of the bladder. [The bladder blade was inserted and the vesicouterine peritoneum identified grasped with Vincentian pickups and entered sharply with the Metzenbaum scissors. His incision was then extended laterally with the Metzenbaum scissors and a bladder flap created digitally. The bladder blade was then reinserted and the lower uterine segment incised in a transverse fashion with the scalpel. The uterine incision was then extended bluntly. The bladder blade was removed and the 's head was delivered from cephalic presentation atraumatically. The nose and mouth were suctioned and the cord doubly clamped and cut. And the infant was handed off to waiting pediatricians. The placenta was then delivered manully and the uterus exteriorized and cleared of all clots and debris. The uterine incision was then repaired with 1-0 Vicryl in a running locked fashion. A second layer of the same suture was used to obtain hemostasis via imbrication of the initial layer. The uterus was returned to the patient's abdomen. The gutters were cleared of all clots and debris. All operative sites were noted to be hemostatic. The fascia was reapproximated with 0 Vicryl in a running fashion from each lateral edge to the midline. The patient tolerated the procedure well. Sponge lap needle and i nstrument counts are correct -2. 2 g of Ancef were given prior to skin incision. The patient was taken to the recovery area awake and in stable condition.
--- NOTE | 2019-11-03 16:45 | Delivery Summary ---
Del Sum A-C Datetime Report Generated by CPN: 11/03/2019 16:45 DELIVERY PERSONNEL DELIVERY PERSONNEL: [id number] Delivery Doctor:: Emre Joshua MD FIELD CARE MANAGER:: Stephen Ruiz CRNA Pattern Carrier:: Emma Mejia RN Inhalation Therapist:: Dr. Adrienne Hinton Nursery Nurse:: Leatha Gauthier RN Components Engineer/SWING FRAME GRINDER OPERATOR: ST Dae Components Engineer/SWING FRAME GRINDER OPERATOR: Angeli Gramajo, NEUROSURGERY PHYSICIAN MATERNAL INFORMATION Delivery Anesthesia: Spinal Medications After Delivery: Pitocin Bolus-Please Comment Meds After Delivery Comment: See Anesthesia flowsheet Delivery QBL: 1130 Maternal Complications: None LABOR SUMMARY EDC: 11/04/2019 00:00 No. Babies in Womb: 1 Attempted: No Labor Anesthesia: None LABOR INFORMATION Reason for Induction: Not Applicable Oxytocin: N/A Group B Beta Strep: Positive Antibiotics # of Doses: 0 Antibiotics Time of Last Dose: n/a Name of Antibiotic Given: n/a Steroids Given: None Reason Steroids Not Administered: Not Applicable MEMBRANES Membranes Rupture Method: Artificial Rupture of Membranes: 11/03/2019 15:26 Length of Rupture (hr): 0.03 Amniotic Fluid Color: Clear Amniotic Fluid Amount: Moderate Amniotic Fluid Odor: None STAGES OF LABOR Stage 3 hr: 0 Stage 3 min: 1 VAGINAL DELIVERY Episiotomy: None Laceration #1: None Laceration Extension #1: N/A Laceration Repair: Not Applicable Sponge Count Correct: N/A Sharps Count Correct: N/A CSECTION DELIVERY Primary Indication: Repeat Elective CSection Urgency: Non-Scheduled CSection Incidence: Repeat CSection Incision: Lower Uterine Transverse BABY A INFORMATION Infant Delivery Date/Time: 11/03/2019 15:28 Method of Delivery: Nurse Controlled Delivery: No Born in Route : No : N/A Forceps: N/A Vacuum Extraction: N/A Shoulder Dystocia : No PRESENTATION/POSITION BABY A Presentation: Cephalic Cephalic Presentation: Vertex Vertex Position: n/a Breech Presentation: N/A PLACENTA INFORMATION BABY A Placenta Delivery Time : 11/03/2019 15:29 Placenta Method of Delivery: Manual Removal Placenta Status: Delivered SCORES BABY A Heart Rate 1 min: >100 bpm Resp Effort 1 min: Good Cry Reflex Irritability 1 min: Cough or Sneeze or Pulls Away Muscle Tone 1 min: Active Motion Color 1 min: Blue/Pale SCORE 1 MIN: 8 Heart Rate 5 min: >100 bpm Resp Effort 5 min: Good Cry Reflex Irritability 5 min: Cough or Sneeze or Pulls Away Muscle Tone 5 min: Active Motion Color 5 min: Body Grayson, Extremities Blue SCORE 5 MIN: 9 INFANT INFORMATION BABY A Gestational Age at Delivery: 39.6 Gestational Status: Full Term- 39- 40.6 Weeks Outcome : Liveborn Infant Condition : Stable Sex: Male IDENTIFICATION BABY A Infant Verification Date/Time: 11/03/2019 16:43 ID Band Number: [id number] Mother's Name Verified: Yes Infant RN Verifying : RGrover,RN MMobley,RN WEIGHT/LENGTH BABY A Birthweight (gm): 3725 Weight (lb): 8 Weight (oz): 3 Length (in): 20.50 Infant Length (cm): 52.07 CORD INFORMATION BABY A No. Cord Vessels: 3 Cord Blood Taken: Yes-For Eval (Mom's Blood Type - or O+) Infant Suction: None ASSESSMENT BABY A Infant Complications: None Physical Findings at Delivery: Within Normal Limits Infant Respirations: Appears Normal Skin to Skin: No Infant Care By: paola payan Transferred To: Nursery BABY B INFORMATION : N/A
--- NOTE | 2019-11-03 16:45 | Birth Certificate Data ---
Cert Data Datetime Report Generated by CPN: 11/03/2019 16:45 CERTIFICATE DATA 47a. Care: Yes (10/18/2019 19:42:Fouzia Andre RN) 47b. Date of First Visit: 04/01/2019 00:00 (10/18/2019 19:42:Sara Monge RN) 47c. Date of Last Visit: 11/03/2019 00:00 (10/18/2019 19:42:Sara Monge RN) 47d. Number of Visits: 11 (10/18/2019 19:42:Sara Monge RN) 48a. Number of Prev Live Births: 1 (10/18/2019 19:42:Sara Monge RN) 48b. Now Livin (10/18/2019 19:42:Sara Monge RN) 48c. Live Births Now : 0 (10/18/2019 19:42:QS system process) 48d. Date of Last Live : 02/25/2018 00:00 (10/18/2019 19:42:Sara Monge RN) 48e. Losses: 0 (10/18/2019 19:42:Sara Monge RN) RISK FACTORS IN THIS 49a. Diabetes: No (10/18/2019 19:42:Fouzia Andre RN) 49b. Hypertension: Yes (10/18/2019 19:42:Sara Monge RN) Type of Hypertension: Gestational (PIH, Pre-eclampsia) (10/18/2019 19:42:Sara Monge RN) 49c. Previous Births: 0 (10/18/2019 19:42:Sara Monge RN) 49d. Stillborns: No (10/18/2019 19:42:Fouzia Andre RN) 49d. IUGR: No (10/18/2019 19:42:Fouzia Andre RN) 49e. Infertility Treatment: No (10/18/2019 19:42:Fouzia Andre RN) 49f. Previous Cesareans: 1 (10/18/2019 19:42:Fouzia Andre RN) Mother's Height 50b. Height Inches: 61 (11/03/2019 13:13:QS system process) Mother's Weight 51a. Pre- Weight: 170 (10/18/2019 19:42:Fouzia Andre RN) 51b. Weight at Time of Delivery: 202 (11/03/2019 13:13:QS system process) Infections Present/Treated 53a. Gonorrhea: No (10/18/2019 19:42:Fouzia Andre RN) Results this Hospital Visit : Negative (10/18/2019 19:42:Sara Monge RN) 53b. Syphilis: No (10/18/2019 19:42:Fouzia Andre RN) 53c. Chlamydia: No (10/18/2019 19:42:Fouzia Andre RN) Results this Hospital Visit: Negative (10/18/2019 19:42:Sara Monge RN) 53d. Hepatitis B: No (10/18/2019 19:42:Fouzia Andre RN) Results this Hospital Visit: Negative (10/18/2019 19:42:Sara Monge RN) 53e. Hepatitis C: Negative (10/18/2019 19:42:Sara Monge RN) 53i. Date Tested: 05/22/2019 00:00 (10/18/2019 19:42:Sara Monge RN) Obstetric Procedures 54a, b, c. Obstetric Procedures: Ultrasound (10/18/2019 19:42:Fouzia Andre RN) Cigarette Smoking 55a. 3 Months Before Preg - Ci (10/18/2019 19:42:Sara Monge RN) 55a. Packs: 0 (10/18/2019 19:42:Sara Monge RN) 55b. 1st Trimester of Preg- Ci (10/18/2019 19:42:Sara Monge RN) 55b. Packs: 0 (10/18/2019 19:42:Sara Monge RN) 55c. 2nd Trimester of Preg- Ci (10/18/2019 19:42:Sara Monge RN) 55c. Packs: 0 (10/18/2019 19:42:Sara Monge RN) 55d. 3rd Trimester of Preg- Ci (10/18/2019 19:42:Sara Monge RN) 55d. Packs: 0 (10/18/2019 19:42:Sara Monge RN) Onset of Labor 56a. PROM >12 Hrs: 0.03 (10/18/2019 19:42:QS system process) 57a. Induction of Labor: N/A (10/18/2019 19:42:Emma Mejia RN) 57c. Non-Vertex Presentation A: Vertex (10/18/2019 19:42:Sara Monge RN) 57d. Steroids - Lung Mat: None (10/18/2019 19:42:Sara Monge RN) 57d. Steroids - Lung Mat: Not Applicable (10/18/2019 19:42:Sara Monge RN) 57e. Antibiotics During Labor: n/a (10/18/2019 19:42:Sara Monge RN) 57f. Mat Chorio or Temp >100.4: 98.0 (10/18/2019 19:42:Sara Monge RN) 57g. Moderate/Heavy Meconium: Clear (10/18/2019 19:42:Emma Mejia RN) 57h. Intolerance of Labor: Repeat Elective (10/18/2019 19:42:Sara Monge RN) 57i. Epidural/Spinal Anesthesia: None (10/18/2019 19:42:Sara Monge RN) Method of Delivery 58a. Forceps - Unsuccessful A: N/A (10/18/2019 19:42:Sara Monge RN) 58b. Vacuum - Unsuccessful A: N/A (10/18/2019 19:42:Sara Monge RN) 58c. Presentation at 58c. Presentation at - A : Vertex (10/18/2019 19:42:Sara Monge RN) 58c. Presentation at - A : N/A (10/18/2019 19:42:Sara Monge RN) 58c. Presentation at - A : Cephalic (10/18/2019 19:42:Sara Monge RN) Final Route and Method of Del 58d. Baby A Route/Delivery: (10/18/2019 19:42:Sara Monge RN) 58e. Trial of Labor Attempted: No (10/18/2019 19:42:Sara Monge RN) 58e. Trial of Labor Attempted A: N/A (10/18/2019 19:42:Sara Monge RN) 58e. Trial of Labor Attempted B: N/A (10/18/2019 19:42:Sara Monge RN) Maternal Morbidity 59b. 3rd or 4th Degree Lacs: None (10/18/2019 19:42:Sara Monge RN) Birthweight Baby A: 3725 (10/18/2019 19:42:Chelsi Torres RN) 60a. Pounds : 8 (10/18/2019 19:42:QS system process) 60b. Ounces: 3 (10/18/2019 19:42:QS system process) 61. GA at Delivery Baby A: 39.6 (10/18/2019 19:42:Sara Monge RN) : Full Term- 39- 40.6 Weeks (10/18/2019 19:42:QS system process) 62a. 5 Minute Baby A: 9 (10/18/2019 19:42:QS system process)
[2019-11-03] MEDS: DOCUSATE SODIUM 100 MG CAPSULE PO SCH (18:43)
[2019-11-03] MEDS: OXYCODONE-ACETAMINOPHEN 5-325 MG TABLET PO PRN (18:43)
[2019-11-03] MEDS: MORPHINE SULFATE 10 MG/ML INJ IM PRN (20:09)
[2019-11-03] MEDS ORDERED: KETOROLAC TROMETHAMINE INJ/PF 30 MG/1 ML SDV IV SCH ×2 (22:00)
[2019-11-04] MEDS: KETOROLAC TROMETHAMINE INJ/PF 30 MG/1 ML SDV IV SCH ×2 (00:11→08:06)
[2019-11-04] MEDS: SIMETHICONE 80 MG TAB.CHEW PO PRN ×2 (06:05→13:02)
[2019-11-04 06:51] LABS: HEMATOCRIT 28.2 % (36.0-47.0); HEMOGLOBIN 9.5 g/dL (12.0-15.5); MEAN CORPUSCULAR HEMOGLOBIN 26.9 pg (27.0-33.4); MEAN CORPUSCULAR HGB CONC 33.6 g/dL (32.0-36.0); MEAN CORPUSCULAR VOLUME 80 fl (80-97); PLATELET COUNT 141 10^3/uL (150-450); RED BLOOD COUNT 3.52 10^6/uL (3.72-5.28); WHITE BLOOD COUNT 8.2 10^3/uL (4.0-10.5)
[2019-11-04] MEDS: DOCUSATE SODIUM 100 MG CAPSULE PO SCH ×2 (10:28→18:19)
[2019-11-04] MEDS: PRENATAL VITAMIN W DHA CAPSULE PO SCH (10:28)
[2019-11-04] MEDS: FERROUS SULFATE 325 MG TABLET PO SCH (10:28)
[2019-11-04] MEDS: OXYCODONE-ACETAMINOPHEN 5-325 MG TABLET PO PRN (10:30)
--- NOTE | 2019-11-04 12:29 | PDOC PROGRESS REPORT ---
Subjective-OB Progress Note for:: 11/04/19 Subjective: 24yo G2 now P2 s/p repeat ppd1. Pt ambulating and voiding without difficulty. Pain well controlled with medication, no concerns today. Reports passing gas, no bowel movement yet Physical Exam (OB) Vital Signs: Temp Pulse Resp BP Pulse Ox 97.9 F 88 16 139/95 H 100 11/04/19 07:00 11/04/19 07:00 11/04/19 07:00 11/04/19 07:00 11/04/19 07:00 Intake & Output 11/03/19 11/04/19 11/05/19 06:59 06:59 06:59 Intake Total 1000 Output Total 900 Balance 100 Weight 91.9 kg - General General Appearance: Appears well In distress: None - PIH/Pre-Eclampsia DTR's: 2 + Clonus: Negative Headache: Absent Epigastric Pain: No Visual Changes: No - Dressing Removed: No - silktape abdominal pressure dressing clean, dry and intact Incision: Dressing - Maternal Morbidity 59. Maternal Morbidity (serious complications experinced by the mother associated with labor and delivery: None of the above - Lochia Lochia Amount: Small 10-25 ml Lochia Color: Rubra/Red - Abdomen Description: Soft, Round Hernia Present: No Fundal Description: Firm, Midline Fundal Height: u/u - u/2 - Respiratory Respiratory Status: No respiratory distress - Extremities Upper extremity: Normal inspection Lower extremities: Normal inspection - Neurological Cognition: Normal Orientation: AAOx4 - Psychological Associated symptoms: Normal affect, Normal mood Objective-Diagnostic Laboratory: 11/04/19 06:22 11/03/19 11/03/19 11/03/19 12:51 12:59 12:59 WBC 6.0 RBC 4.20 Hgb 11.3 L Hct 33.4 L MCV 80 MCH 26.8 L MCHC 33.7 RDW 15.0 H Plt Count 172 Seg Neutrophils % 60.1 Urine Color YELLOW Urine Appearance SLIGHTLY-CLOUDY Urine pH 6.0 Ur Specific [place] 1.028 Urine Protein 100 H Urine Glucose (UA) NEGATIVE Urine Ketones NEGATIVE Urine Blood NEGATIVE Urine Nitrite NEGATIVE Ur Leukocyte Esterase NEGATIVE Urine WBC (Auto) 6 Urine RBC (Auto) 0 Blood Type O POSITIVE Antibody Screen NEGATIVE 11/04/19 06:22 WBC 8.2 RBC 3.52 L Hgb 9.5 L Hct 28.2 L MCV 80 MCH 26.9 L MCHC 33.6 RDW 15.0 H Plt Count 141 L Seg Neutrophils % Urine Color Urine Appearance Urine pH Ur Specific [place] Urine Protein Urine Glucose (UA) Urine Ketones Urine Blood Urine Nitrite Ur Leukocyte Esterase Urine WBC (Auto) Urine RBC (Auto) Blood Type Antibody Screen Assessment and Plan(PN) - Assessment and Plan (1) Acute blood loss anemia Is this a current diagnosis for this admission?: Yes Plan: increase dietary iron and FeSO4 BID (2) Thrombocytopenia Is this a current diagnosis for this admission?: Yes Plan: will repeat CBC in the am, warning s/s reviewed (3) Gestational hypertension Qualifiers: Trimester: unspecified trimester Qualified Code(s): O13.9 - Gestational [-induced] hypertension without significant proteinuria, unspecified trimester Is this a current diagnosis for this admission?: Yes Plan: mild bps today,continue to monitor for s/s of pp pre-e and/or need for antihy pertensives. Denies all other s/s (4) Previous section Is this a current diagnosis for this admission?: Yes Plan: delivered (5) 39 weeks gestation of Is this a current diagnosis for this admission?: Yes Plan: delivered (6) S/P repeat low transverse Is this a current diagnosis for this admission?: Yes Plan: Routine pp care - Time Spent with Patient Time with patient: Less than 15 minutes Medications reviewed and adjusted accordingly: Yes - Disposition Anticipated Discharge Disposition: Home, Self Care Anticipated Discharge Timeframe: within 24 hours
[2019-11-04] MEDS: IBUPROFEN 800 MG TABLET PO SCH ×2 (13:02→18:19)
--- NOTE | 2019-11-04 14:04 | Birth Certificate Data ---
Cert Data Datetime Report Generated by CPN: 11/04/2019 14:04 CERTIFICATE DATA 47a. Care: Yes (10/18/2019 19:42:Fouzia Andre RN) 47b. Date of First Visit: 04/01/2019 00:00 (10/18/2019 19:42:Sara Monge RN) 47c. Date of Last Visit: 11/03/2019 00:00 (10/18/2019 19:42:Sara Monge RN) 47d. Number of Visits: 11 (10/18/2019 19:42:Sara Monge RN) 48a. Number of Prev Live Births: 1 (10/18/2019 19:42:Sara Mnoge RN) 48b. Now Livin (10/18/2019 19:42:Sara Monge RN) 48c. Live Births Now : 0 (10/18/2019 19:42:QS system process) 48d. Date of Last Live : 02/25/2018 00:00 (10/18/2019 19:42:Sara Monge RN) 48e. Losses: 0 (10/18/2019 19:42:Sara Monge RN) RISK FACTORS IN THIS 49a. Diabetes: No (10/18/2019 19:42:Fouzia Andre RN) 49b. Hypertension: Yes (10/18/2019 19:42:Sara Monge RN) Type of Hypertension: Gestational (PIH, Pre-eclampsia) (10/18/2019 19:42:Sara Monge RN) 49c. Previous Births: 0 (10/18/2019 19:42:Sara Monge RN) 49d. Stillborns: No (10/18/2019 19:42:Fouzia Andre RN) 49d. IUGR: No (10/18/2019 19:42:Fouzia Andre RN) 49e. Infertility Treatment: No (10/18/2019 19:42:Fouzia Andre RN) 49f. Previous Cesareans: 1 (10/18/2019 19:42:Fouzia Andre RN) Mother's Height 50b. Height Inches: 61 (11/04/2019 12:16:QS system process) 50b. Height Inches: 61 (11/03/2019 17:47:QS system process) 50b. Height Inches: 61 (11/03/2019 13:13:QS system process) 50b. Height Inches: 61 (11/03/2019 12:51:QS system process) 50b. Height Inches: 61 (10/18/2019 19:28:QS system process) Mother's Weight 51a. Pre- Weight: 170 (10/18/2019 19:42:Fouzia Andre RN) 51b. Weight at Time of Delivery: 202 (11/04/2019 12:16:QS system process) 51b. Weight at Time of Delivery: 202 (11/03/2019 17:47:QS system process) 51b. Weight at Time of Delivery: 202 (11/03/2019 13:13:QS system process) 51b. Weight at Time of Delivery: 202 (11/03/2019 12:51:QS system process) 51b. Weight at Time of Delivery: 198 (10/18/2019 19:28:QS system process) Infections Present/Treated 53a. Gonorrhea: No (10/18/2019 19:42:Fouzia Andre RN) Results this Hospital Visit : Negative (10/18/2019 19:42:Sara Monge RN) 53b. Syphilis: No (10/18/2019 19:42:Fouzia Andre RN) Results this Hospital Visit: NONREACTIVE (11/03/2019 12:59:QS system process) 53c. Chlamydia: No (10/18/2019 19:42:Fouzia Andre RN) Results this Hospital Visit: Negative (10/18/2019 19:42:Sara Monge RN) 53d. Hepatitis B: No (10/18/2019 19:42:Fouzia Andre RN) Results this Hospital Visit: Negative (10/18/2019 19:42:Sara Monge RN) 53e. Hepatitis C: Negative (10/18/2019 19:42:Sara Monge RN) 53i. Date Tested: 05/22/2019 00:00 (10/18/2019 19:42:Sara Monge RN) Obstetric Procedures 54a, b, c. Obstetric Procedures: Ultrasound (10/18/2019 19:42:Fouzia Andre RN) Cigarette Smoking 55a. 3 Months Before Preg - Ci (10/18/2019 19:42:Sara Monge RN) 55a. Packs: 0 (10/18/2019 19:42:Sara Monge RN) 55b. 1st Trimester of Preg- Ci (10/18/2019 19:42:Sara Monge RN) 55b. Packs: 0 (10/18/2019 19:42:Sara Monge RN) 55c. 2nd Trimester of Preg- Ci (10/18/2019 19:42:Sara Monge RN) 55c. Packs: 0 (10/18/2019 19:42:Sara Monge RN) 55d. 3rd Trimester of Preg- Ci (10/18/2019 19:42:Sara Monge RN) 55d. Packs: 0 (10/18/2019 19:42:Sara Monge RN) Onset of Labor 56a. PROM >12 Hrs: 0.03 (10/18/2019 19:42:QS system process) 57a. Induction of Labor: N/A (10/18/2019 19:42:Emma Mejia RN) 57c. Non-Vertex Presentation A: Vertex (10/18/2019 19:42:Sara Monge RN) 57d. Steroids - Lung Mat: None (10/18/2019 19:42:Sara Monge RN) 57d. Steroids - Lung Mat: Not Applicable (10/18/2019 19:42:Sara Monge RN) 57e. Antibiotics During Labor: n/a (10/18/2019 19:42:Sara Monge RN) 57f. Mat Chorio or Temp >100.4: 98.0 (10/18/2019 19:42:Sara Monge RN) 57g. Moderate/Heavy Meconium: Clear (10/18/2019 19:42:Emma Mejia RN) 57h. Intolerance of Labor: Repeat Elective (10/18/2019 19:42:Sara Monge RN) 57i. Epidural/Spinal Anesthesia: None (10/18/2019 19:42:Sara Monge RN) Method of Delivery 58a. Forceps - Unsuccessful A: N/A (10/18/2019 19:42:Sara Monge RN) 58b. Vacuum - Unsuccessful A: N/A (10/18/2019 19:42:Sara Monge RN) 58c. Presentation at 58c. Presentation at - A : Vertex (10/18/2019 19:42:Sara Monge RN) 58c. Presentation at - A : N/A (10/18/2019 19:42:Sara Monge RN) 58c. Presentation at - A : Cephalic (10/18/2019 19:42:Sara Monge RN) Final Route and Method of Del 58d. Baby A Route/Delivery: (10/18/2019 19:42:Sara Monge RN) 58e. Trial of Labor Attempted: No (10/18/2019 19:42:Sara Monge RN) 58e. Trial of Labor Attempted A: N/A (10/18/2019 19:42:Sara Monge RN) 58e. Trial of Labor Attempted B: N/A (10/18/2019 19:42:Sara Mariposa, RN) Maternal Morbidity 59b. 3rd or 4th Degree Lacs: None (10/18/2019 19:42:Sara Mariposa, RN) Birthweight Baby A: 3725 (10/18/2019 19:42:Chelsi Torres RN) 60a. Pounds : 8 (10/18/2019 19:42:QS system process) 60b. Ounces: 3 (10/18/2019 19:42:QS system process) 61. GA at Delivery Baby A: 39.6 (10/18/2019 19:42:Sara Monge RN) : Full Term- 39- 40.6 Weeks (10/18/2019 19:42:QS system process) 62a. 5 Minute Baby A: 9 (10/18/2019 19:42:QS system process)
[2019-11-04] MEDS: MORPHINE SULFATE 10 MG/ML INJ IM PRN (19:45)
[2019-11-05] MEDS ORDERED: IBUPROFEN 800 MG TABLET PO SCH ×2
[2019-11-05] MEDS: IBUPROFEN 800 MG TABLET PO SCH ×3 (00:11→13:45)
[2019-11-05] MEDS: SIMETHICONE 80 MG TAB.CHEW PO PRN (00:11)
[2019-11-05 07:46] LABS: HEMATOCRIT 27.9 % (36.0-47.0); HEMOGLOBIN 9.4 g/dL (12.0-15.5); MEAN CORPUSCULAR HGB CONC 33.6 g/dL (32.0-36.0); MEAN CORPUSCULAR VOLUME 80 fl (80-97); PLATELET COUNT 162 10^3/uL (150-450); RED BLOOD COUNT 3.47 10^6/uL (3.72-5.28); RED CELL DISTRIBUTION WIDTH 15.1 % (11.5-14.0); WHITE BLOOD COUNT 8.3 10^3/uL (4.0-10.5)
[2019-11-05 08:15] VITALS: BP 127/88
--- NOTE | 2019-11-05 08:30 | PDOC PROGRESS REPORT ---
Subjective-OB Progress Note for:: 11/05/19 Subjective: Ready for discharge. Physical Exam (OB) Vital Signs: Temp Pulse Resp BP Pulse Ox 99.0 F 89 18 127/88 H 100 11/05/19 08:10 11/05/19 08:10 11/05/19 08:10 11/05/19 08:10 11/05/19 08:10 Intake & Output 11/04/19 11/05/19 11/06/19 06:59 06:59 06:59 Intake Total 1000 Output Total 900 300 Balance 100 -300 Weight 91.9 kg - PIH/Pre-Eclampsia DTR's: 2 + Clonus: Negative Headache: Absent Epigastric Pain: No Visual Changes: No - Dressing Removed: Yes Incision: Open, Well Approximated Closure Type: Steri-Strips - Maternal Morbidity 59. Maternal Morbidity (serious complications experinced by the mother associated with labor and delivery: None of the above - Lochia Lochia Amount: Scant < 10 ml Lochia Color: Rubra/Red - Abdomen Description: Soft Hernia Present: No Bowel Sounds: Normoactive Flatus Presence: Present Stool: No Fundal Description: Firm, Midline Fundal Height: u/u - u/2 Objective-Diagnostic Laboratory: 11/05/19 07:31 11/05/19 07:31 WBC 8.3 RBC 3.47 L Hgb 9.4 L Hct 27.9 L MCV 80 MCH 27.0 MCHC 33.6 RDW 15.1 H Plt Count 162 Assessment and Plan(PN) - Assessment and Plan (1) 39 weeks gestation of Is this a current diagnosis for this admission?: Yes (2) Acute blood loss anemia Is this a current diagnosis for this admission?: Yes (3) Gestational hypertension Qualifiers: Trimester: unspecified trimester Qualified Code(s): O13.9 - Gestational [-induced] hypertension without significant proteinuria, unspecified trimester Is this a current diagnosis for this admission?: Yes (4) Previous section Is this a current diagnosis for this admission?: Yes (5) S/P repeat low transverse Is this a current diagnosis for this admission?: Yes (6) Thrombocytopenia Is this a current diagnosis for this admission?: Yes - Time Spent with Patient Time with patient: 15-25 minutes Medications reviewed and adjusted accordingly: Yes - Disposition Anticipated Discharge Disposition: Home, Self Care Anticipated Discharge Timeframe: within 24 hours
--- NOTE | 2019-11-05 08:47 | PDOC DISCHARGE SUMMARY ---
Impression - Admit/DC Date/PCP Admission Date/Primary Care Provider: 11/03/19 12:36 FIDE WEST MD Discharge Date: 11/05/19 - Discharge Diagnosis (1) 39 weeks gestation of Is this a current diagnosis for this admission?: Yes (2) Acute blood loss anemia Is this a current diagnosis for this admission?: Yes (3) Gestational hypertension Is this a current diagnosis for this admission?: Yes (4) Previous section Is this a current diagnosis for this admission?: Yes (5) S/P repeat low transverse Is this a current diagnosis for this admission?: Yes (6) Thrombocytopenia Is this a current diagnosis for this admission?: Yes - Additional Information Resuscitation Status: Full Code Discharge Diet: Regular Discharge Activity: Activity As Tolerated, Balance Activity w/Rest, No Lifting Over 10 Pounds, Non-Ambulatory Child, Pelvic Rest, Slowly Increase Activity, No tub bath Referrals: FIDE WEST MD [Primary Care Provider] - Prescriptions: Oxycodone HCl/Acetaminophen [Percocet 5-325 mg Tablet] 1 tab PO Q4HP PRN #20 tablet PRN Reason: Docusate Sodium [Colace 100 mg Capsule] 100 mg PO BID #30 capsule Ibuprofen [Motrin 800 mg Tablet] 800 mg PO Q6 #30 tablet Home Medications: Prenat 115/Iron Fum/Folic/Dss [ 19 Tablet] 1 tab PO DAILY 10/18/19 Docusate Sodium [Colace 100 mg Capsule] 100 mg PO BID #30 capsule 11/05/19 Ferrous Sulfate [Feosol 325 mg Tablet] 325 mg PO BID #0 11/05/19 Ibuprofen [Motrin 800 mg Tablet] 800 mg PO Q6 #30 tablet 11/05/19 Oxycodone HCl/Acetaminophen [Percocet 5-325 mg Tablet] 1 tab PO Q4HP PRN #20 tablet 11/05/19 HPI Gestational Age: 39 wks Reason(s) for Admission: Ceasarean Section-Repeat Procedures: Ultrasound Intrapartum Procedure(s): : Low Cervical, Transverse Hospital Course 59. Maternal Morbidity (serious complications experinced by the mother associated with labor and delivery: None of the above Results Laboratory Results: WBC 8.3 10^3/uL (4.0-10.5) 11/05/19 07:31 RBC 3.47 10^6/uL (3.72-5.28) L 11/05/19 07:31 Hgb 9.4 g/dL (12.0-15.5) L 11/05/19 07:31 Hct 27.9 % (36.0-47.0) L 11/05/19 07:31 MCV 80 fl (80-97) 11/05/19 07:31 MCH 27.0 pg (27.0-33.4) 11/05/19 07:31 MCHC 33.6 g/dL (32.0-36.0) 11/05/19 07:31 RDW 15.1 % (11.5-14.0) H 11/05/19 07:31 Plt Count 162 10^3/uL (150-450) 11/05/19 07:31 Lymph % (Auto) 32.3 % (13-45) 11/03/19 12:59 [place] % (Auto) 6.7 % (3-13) 11/03/19 12:59 Eos % (Auto) 0.5 % (0-6) 11/03/19 12:59 Baso % (Auto) 0.4 % (0-2) 11/03/19 12:59 Absolute Neuts (auto) 3.6 10^3/uL (1.7-8.2) 11/03/19 12:59 Absolute Lymphs (auto) 2.0 10^3/uL (0.5-4.7) 11/03/19 12:59 Absolute Monos (auto) 0.4 10^3/uL (0.1-1.4) 11/03/19 12:59 Absolute Eos (auto) 0.0 10^3/uL (0.0-0.6) 11/03/19 12:59 Absolute Basos (auto) 0.0 10^3/uL (0.0-0.2) 11/03/19 12:59 Seg Neutrophils % 60.1 % (42-78) 11/03/19 12:59 Urine Color YELLOW 11/03/19 12:51 Urine Appearance SLIGHTLY-CLOUDY 11/03/19 12:51 Urine pH 6.0 (5.0-9.0) 11/03/19 12:51 Ur Specific [place] 1.028 11/03/19 12:51 Urine Protein 100 mg/dL (NEGATIVE) H 11/03/19 12:51 Urine Glucose (UA) NEGATIVE mg/dL (NEGATIVE) 11/03/19 12:51 Urine Ketones NEGATIVE mg/dL (NEGATIVE) 11/03/19 12:51 Urine Blood NEGATIVE (NEGATIVE) 11/03/19 12:51 Urine Nitrite NEGATIVE (NEGATIVE) 11/03/19 12:51 Urine Bilirubin NEGATIVE (NEGATIVE) 11/03/19 12:51 Urine Urobilinogen 4.0 mg/dL (<2.0) H 11/03/19 12:51 Ur Leukocyte Esterase NEGATIVE (NEGATIVE) 11/03/19 12:51 Urine WBC (Auto) 6 /HPF 11/03/19 12:51 Urine RBC (Auto) 0 /HPF 11/03/19 12:51 Urine Bacteria (Auto) TRACE /HPF 11/03/19 12:51 Squamous Epi Cells Auto 6 /HPF 11/03/19 12:51 Urine Mucus (Auto) MANY /LPF 11/03/19 12:51 Urine Ascorbic Acid NEGATIVE (NEGATIVE) 11/03/19 12:51 Urine Opiates Screen NEGATIVE 11/03/19 12:51 Urine Methadone Screen NEGATIVE 11/03/19 12:51 Ur Barbiturates Screen NEGATIVE 11/03/19 12:51 Ur Phencyclidine Scrn NEGATIVE 11/03/19 12:51 Ur Amphetamines Screen NEGATIVE 11/03/19 12:51 U Benzodiazepines Scrn NEGATIVE 11/03/19 12:51 Urine Cocaine Screen NEGATIVE 11/03/19 12:51 U Marijuana (THC) Screen NEGATIVE 11/03/19 12:51 RPR NONREACTIVE (NONREACTIVE) 11/03/19 12:59 Blood Type O POSITIVE 11/03/19 12:59 Antibody Screen NEGATIVE 11/03/19 12:59 Plan Plan of Treatment: Follow up at [facility] in 1 wk Time Spent: Less than 30 Minutes
[2019-11-05] MEDS: PRENATAL VITAMIN W DHA CAPSULE PO SCH (09:37)
[2019-11-05] MEDS: DOCUSATE SODIUM 100 MG CAPSULE PO SCH (09:37)
[2019-11-05] MEDS: FERROUS SULFATE 325 MG TABLET PO SCH (09:37)
[2019-11-05] MEDS: OXYCODONE-ACETAMINOPHEN 5-325 MG TABLET PO PRN (13:47)
== END 2019-11-05 15:45 | disposition home or self-care (01) | DRG 787 ==
LOC: LR 12:36 → 2N 17:35
PROVIDERS: ADMIT Obstetrics & Gynecology Gynecology; ATTEND Obstetrics & Gynecology Gynecology
PROC: 10D00Z1 Extraction of Products of Conception, Low, Open Approach (ICD-10-PCS; principal; 2019-11-03)
DX: O13.4 Gestational [pregnancy-induced] hypertension without significant proteinuria, complicating childbirth (principal); D62 Acute posthemorrhagic anemia; O99.12 Other diseases of the blood and blood-forming organs and certain disorders involving the immune mechanism complicating childbirth; O34.211 Maternal care for low transverse scar from previous cesarean delivery; O90.81 Anemia of the puerperium; D69.6 Thrombocytopenia, unspecified; O99.824 Streptococcus B carrier state complicating childbirth; Z11.59 Encounter for screening for other viral diseases; Z3A.39 39 weeks gestation of pregnancy; Z37.0 Single live birth
CPT/HCPCS: 1961; 36415; 59025; 64486; 76942; 80307; 81001; 85025; 85027; 86592; 86850; 86900; 86901; 94760; 94799; J0131; J0690; J1885; J2250; J2270; J2405; J2590; J2795; J3010; J3490; J7120

== ENCOUNTER 2019-11-18 13:53 | Emergency (ER) | payer MEDICAID ==
[2019-11-18 13:59] VITALS: BP 150/111
[2019-11-18] MEDS ORDERED: ACETAMINOPHEN 325 MG TABLET PO ONE (14:05)
--- NOTE | 2019-11-18 14:07 | ER Document Report ---
ED Medical Screen (RME) - General Chief Complaint: Wound Infection Stated Complaint: POST PROBLEM Time Seen by Provider: 11/18/19 14:00 Primary Care Provider: FIDE WEST MD [Primary Care Provider] - Follow up as needed Mode of Arrival: Ambulatory Information source: Patient Notes: Patient is 2 weeks after having a . Patient states that the area of her abdominal incision has appeared to open up and has had a foul- smelling drainage. Patient also complains of headache pain. Patient denies any fever, nausea or vomiting. Patient's blood pressure elevated in triage. Patient states that she did have occasional elevations in her blood pressure during the although was not diagnosed as preeclamptic and was not placed on any antihypertensive medication. Patient is breast-feeding. I have greeted and performed a rapid initial assessment of this patient. A comprehensive ED assessment and evaluation of the patient, analysis of test results and completion of the medical decision making process will be conducted by additional ED providers. TRAVEL OUTSIDE OF THE [place] IN LAST 30 DAYS: No - Related Data Allergies/Adverse Reactions: No Known Allergies Allergy (Verified 05/10/18 03:15) Past Medical History Renal/ Medical History: Denies: Hx Peritoneal Dialysis Past Surgical History: Reports: Hx Section Physical Exam - Vital signs Vitals: Temp Pulse Resp BP Pulse Ox 98.7 F 80 18 150/111 H 99 11/18/19 13:58 11/18/19 13:58 11/18/19 13:58 11/18/19 13:58 11/18/19 13:58 - Abdominal Notes: Small area of wound dehiscence to the left lateral side of wound - Neurological Neuro grossly intact: Yes Cognition: Normal [place] Coma Scale Eye Opening: Spontaneous [place] Coma Scale Verbal: Oriented [place] Coma Scale Motor: Obeys Commands [place] Coma Scale Total: 15 Course - Vital Signs Vital signs: Temp Pulse Resp BP Pulse Ox 98.7 F 80 18 150/111 H 99 11/18/19 13:58 11/18/19 13:58 11/18/19 13:58 11/18/19 13:58 11/18/19 13:58 Doctor's Discharge - Discharge Referrals: FIDE WEST MD [Primary Care Provider] - Follow up as needed
[2019-11-18 14:35] LABS: ABSOLUTE EOSINOPHILS # (AUTO) 0.1 10^3/uL (0.0-0.6); ABSOLUTE MONOCYTES (AUTO) 0.2 10^3/uL (0.1-1.4); ABSOLUTE NEUT (AUTO) 2.1 10^3/uL (1.7-8.2); BASOPHILS % (AUTO) 0.8 % (0-2); EOSINOPHILS % (AUTO) 3.1 % (0-6); HEMATOCRIT 34.8 % (36.0-47.0); HEMOGLOBIN 11.4 g/dL (12.0-15.5); LYMPHOCYTES % (AUTO) 44.7 % (13-45); MEAN CORPUSCULAR HEMOGLOBIN 26.1 pg (27.0-33.4); MEAN CORPUSCULAR HGB CONC 32.9 g/dL (32.0-36.0); MEAN CORPUSCULAR VOLUME 80 fl (80-97); MONOCYTES % (AUTO) 5.2 % (3-13); PLATELET COUNT 323 10^3/uL (150-450); RED BLOOD COUNT 4.38 10^6/uL (3.72-5.28); RED CELL DISTRIBUTION WIDTH 14.5 % (11.5-14.0); SEGMENTED NEUTROPHILS % (AUTO) 46.2 % (42-78); TOTAL CELLS COUNTED % (AUTO) 100 %; WHITE BLOOD COUNT 4.5 10^3/uL (4.0-10.5)
[2019-11-18 14:36] LABS: APPEARANCE,URINE CLEAR; BILIRUBIN,URINE NEGATIVE (NEGATIVE); COLOR,URINE YELLOW; GLUCOSE, URINE NEGATIVE (NEGATIVE); KETONES,URINE NEGATIVE (NEGATIVE); LEUKOCYTE ESTERASE,URINE TRACE (NEGATIVE); NITRITE,URINE NEGATIVE (NEGATIVE); PROTEIN,URINE 30 mg/dL (NEGATIVE); URINE SPECIFIC GRAVITY 1.027
[2019-11-18 14:43] LABS: ADD MANUAL MICROSCOPIC YES; BACTERIA,URINE 1+ /HPF; RBC,URINE NONE SEEN /HPF
[2019-11-18 14:51] LABS: ALKALINE PHOSPHATASE 103 U/L (38-126); ANION GAP 6 (5-19); ASPARTATE AMINO TRANSFERASE 23 U/L (14-36); BILIRUBIN,DIRECT 0.3 mg/dL (0.0-0.4); BILIRUBIN,TOTAL 0.3 mg/dL (0.2-1.3); BLOOD UREA NITROGEN 15 mg/dL (7-20); CALCIUM 9.4 mg/dL (8.4-10.2); CARBON DIOXIDE 28 mmol/L (22-30); CHLORIDE 105 mmol/L (98-107); GLUCOSE 94 mg/dL (75-110); POTASSIUM 3.9 mmol/L (3.6-5.0); TOTAL PROTEIN 7.2 g/dL (6.3-8.2)
--- NOTE | 2019-11-18 15:17 | ER Document Report ---
ED General - General Chief Complaint: Wound Infection Stated Complaint: POST PROBLEM Time Seen by Provider: 11/18/19 14:00 Primary Care Provider: FIDE JOSHUA MD [Primary Care Provider] - Follow up as needed Mode of Arrival: Ambulatory Information source: Patient, Parent Notes: Patient is a 24-year-old female presenting to the emergency department chief complaint of possible infection to site. Patient states she had a C- section performed at this hospital by Dr. Joshua on November 02 she states that yesterday she noticed that part of the incision had popped open and it had a bad smell. Patient denies travel history trauma history sick contacts no fevers or chills no cough or cold symptoms. TRAVEL OUTSIDE OF THE [place] IN LAST 30 DAYS: No - HPI Onset: Yesterday Onset/Duration: Persistent Quality of pain: Achy Severity: Mild Pain Level: 1 Associated symptoms: None Exacerbated by: Movement Relieved by: Denies Similar symptoms previously: No Recently seen / treated by doctor: No - Related Data Allergies/Adverse Reactions: No Known Allergies Allergy (Verified 05/10/18 03:15) Past Medical History - General Information source: Patient, Parent - Social History Smoking Status: Unknown if Ever Smoked Chew tobacco use (# tins/day): No Frequency of alcohol use: None Drug Abuse: None Lives with: Family Family History: Reviewed & Not Pertinent Patient has suicidal ideation: No Patient has homicidal ideation: No Renal/ Medical History: Denies: Hx Peritoneal Dialysis Past Surgical History: Reports: Hx Section Review of Systems - Review of Systems Constitutional: No symptoms reported EENT: No symptoms reported Cardiovascular: No symptoms reported Respiratory: No symptoms reported Gastrointestinal: No symptoms reported Genitourinary: No symptoms reported Female Genitourinary: No symptoms reported Musculoskeletal: No symptoms reported Skin: See HPI Hematologic/Lymphatic: No symptoms reported Neurological/Psychological: No symptoms reported -: Yes All other systems reviewed and negative Physical Exam - Vital signs Vitals: Temp Pulse Resp BP Pulse Ox 98.7 F 80 18 150/111 H 99 11/18/19 13:58 11/18/19 13:58 11/18/19 13:58 11/18/19 13:58 11/18/19 13:58 - Notes Notes: PHYSICAL EXAMINATION: GENERAL: Well-appearing, well-nourished and in no acute distress. HEAD: Atraumatic, normocephalic. EYES: Pupils equal round and reactive to light, extraocular movements intact, sclera anicteric, conjunctiva are normal. ENT: nares patent, oropharynx clear without exudates. Moist mucous membranes. NECK: Normal range of motion, supple without lymphadenopathy, no appreciable JVD LUNGS: Lungs clear to auscultation bilaterally and equal. No wheezes rales or rhonchi. HEART: Regular rate and rhythm without murmurs ABDOMEN: Soft, nontender, normal bowel sounds. No guarding, no rebound. No masses appreciated. section incision scar is demonstrating approximately 1 cm dehiscence on both lateral aspects. There is some serous drainage and odor to the site patient is afebrile EXTREMITIES: Active full range of motion, no pitting or edema. No cyanosis. 2+ pulses x4 NEUROLOGICAL: No focal neurological deficits. Moves all extremities spontaneously and on command. SKIN: Warm, Dry, and intact. Normal turgor, no rashes or lesions noted. Course - Re-evaluation Re-evalutation: 11/18/19 15:31 I discussed the laboratory findings with the patient I did speak with [employer] on- call he recommends that the patient start on antibiotic and we have agreed on Keflex. Patient is to follow-up in the office for worsening condition. Mother and patient are agreeable with care plan all questions are answered. Patient is discharged home in stable condition. - Vital Signs Vital signs: Temp Pulse Resp BP Pulse Ox 98.7 F 80 18 150/111 H 99 11/18/19 13:58 11/18/19 13:58 11/18/19 13:58 11/18/19 13:58 11/18/19 13:58 - Laboratory Result Diagrams: 11/18/19 14:22 11/18/19 14:22 Laboratory results interpreted by me: 11/18/19 11/18/19 14:22 14:22 Hgb 11.4 L Hct 34.8 L MCH 26.1 L RDW 14.5 H Urine Protein 30 H Urine Blood LARGE H Urine Urobilinogen 2.0 H Ur Leukocyte Esterase TRACE H Urine Ascorbic Acid 40 H Discharge - Discharge Clinical Impression: Wound dehiscence, Condition: Stable Disposition: HOME, SELF-CARE Instructions: Soap Cleansing ([facility]), Prophylactic Antibiotic ([facility]), Laceration Care ([facility]) Prescriptions: Cephalexin Monohydrate [Keflex 500 mg Capsule] 500 mg PO Q6H 5 Days #20 capsule Referrals: FIDE JOSHUA MD [Primary Care Provider] - Follow up as needed
== END 2019-11-18 15:42 | disposition home or self-care (01) ==
LOC: ER 13:53
DX: O90.0 Disruption of cesarean delivery wound (principal)
CPT/HCPCS: 99283; 36415; 85025; 80053; 81001; J3490

== ENCOUNTER 2020-03-25 10:15 | Emergency (ER) | payer MEDICAID ==
[2020-03-25] MEDS ORDERED: CETIRIZINE 10 MG TABLET PO ONE (10:46)
--- NOTE | 2020-03-25 10:49 | ER Document Report ---
ED Medical Screen (RME) - General Chief Complaint: Allergic Reaction Stated Complaint: FACIAL SWELLING,ITCHING Time Seen by Provider: 03/25/20 10:40 Mode of Arrival: Ambulatory Information source: Patient Notes: HPI; 24-year-old female with no previous medical problems presents to the emergency room with sudden onset of upper lip swelling. Patient states that around 8:30 this morning she noticed a small bump on her upper lip she started itching it and within 45 minutes her entire upper lip had swollen. Symptoms progressively worsened. No meds for symptoms. No new meds, no new foods. States she had taken an Advil around an hour prior to noticing the bump. States she had taken Advil in the past without any reactions. Not currently on any prescribed medications. No food allergies. Drove self to the emergency room. Denies . Denies any shortness of breath or difficulty breathing. PE: Alert and oriented x3. Lungs: Clear to auscultation without rales, rhonchi, wheezes. Heart: Regular rate rhythm without murmurs, rubs, gallops. Upper lip with significant swelling. Able to handle her own secretions. Talking in full sentences. I have greeted and performed a rapid initial assessment of this patient. A comprehensive ED assessment and evaluation of the patient, analysis of test results and completion of the medical decision making process will be conducted by additional ED providers. I have specifically instructed the patient or family members with the patient to immediately return to any nursing staff should anything change in the patient's condition or with their chief complaint. TRAVEL OUTSIDE OF THE [place] IN LAST 30 DAYS: No - Related Data Allergies/Adverse Reactions: No Known Allergies Allergy (Verified 05/10/18 03:15) Past Medical History Renal/ Medical History: Denies: Hx Peritoneal Dialysis Past Surgical History: Reports: Hx Section Physical Exam - Vital signs Vitals: Temp Pulse Resp BP Pulse Ox 98.5 F 93 20 137/64 H 98 03/25/20 10:03/25/20 10:03/25/20 10:03/25/20 10:03/25/20 10:19 Course - Vital Signs Vital signs: Temp Pulse Resp BP Pulse Ox 98.5 F 93 20 137/64 H 98 03/25/20 10:03/25/20 10:03/25/20 10:21 10:19 03/25/20 10:19
[2020-03-25] MEDS: METHYLPREDNISOLONE INJ 125 MG/2 ML SDV IV ONE ×2 (11:04→11:19)
[2020-03-25] MEDS ORDERED: FAMOTIDINE INJ/PF 20 MG/2 ML SDV IV ONE (12:58)
[2020-03-25] MEDS ORDERED: EPINEPHRINE INJ/PF 1 MG/1 ML AMPULE IM ONE (12:58)
--- NOTE | 2020-03-25 13:06 | ER Document Report ---
ED General - General Chief Complaint: Lip Swelling Stated Complaint: FACIAL SWELLING,ITCHING Time Seen by Provider: 03/25/20 10:40 Mode of Arrival: Ambulatory TRAVEL OUTSIDE OF THE [place] IN LAST 30 DAYS: No - HPI Notes: Chief complaint: Swelling of lips and eyelids History of present illness: 24-year-old female in good general health taking no long-term medications developed swelling of upper lip and eyelids around 830 this morning. She had taken [id number] ibuprofen for headache about 1/2- hour prior to this. Swelling is getting somewhat worse and so she is coming in for evaluation. She denies any shortness of breath or wheezing. She denies any difficulty swallowing or speaking. Denies any prior history of significant allergies that she is aware of. She has no prior history of similar symptoms in the past. There is no familial history of angioedema. She is not taking any blood pressure medications. Non-smoker. Last menses 2 weeks ago described as normal. - Related Data Allergies/Adverse Reactions: No Known Allergies Allergy (Verified 05/10/18 03:15) Past Medical History - General Information source: Patient - Social History Smoking Status: Never Smoker Chew tobacco use (# tins/day): No Frequency of alcohol use: None Drug Abuse: None Family History: Reviewed & Not Pertinent Renal/ Medical History: Denies: Hx Peritoneal Dialysis Past Surgical History: Reports: Hx Section Review of Systems - Review of Systems Notes: Constitutional: Negative for fever. HENT: As per HPI. Eyes: As per HPI. Cardiovascular: Negative for chest pain. Respiratory: Negative for shortness of breath. Gastrointestinal: Negative for abdominal pain, vomiting or diarrhea. Genitourinary: Negative for dysuria. Musculoskeletal: Negative for back pain. Skin: Negative for rash. Neurological: Negative for headaches, weakness or numbness. 10 point ROS negative except as marked above and in HPI. Physical Exam - Vital signs Vitals: Temp Pulse Resp BP Pulse Ox 98.5 F 93 20 137/64 H 98 03/25/20 10:19 03/25/20 10:19 03/25/20 10:19 03/25/20 10:03/25/20 10:19 - Notes Notes: GENERAL: Well-developed well-nourished female approximately stated age with obvious swelling of lips and eyelids. SKIN: Good turgor no rashes. HEAD: Normocephalic atraumatic. EYES: Mild edema of upper and lower lids bilaterally. PERRLA. EOMI. Conjunctivae and sclerae clear. EARS: CANALS AND TMS CLEAR. NOSE: CLEAR. MOUTH: Moderate edema of upper and lower lips. No swelling of tongue. Moist mucosa. Good dentition. No stridor or edema. No drooling. Normal phonation. Throat: No visible swelling of soft palate or uvula. NECK: Supple. No masses or thyromegaly. No adenopathy. Carotids 2+ without bruits. No JVD. BACK: Symmetrical without tenderness. CHEST: Respirations unlabored. Breath sounds clear and symmetrical. HEART: Regular rhythm. No murmur gallop or rub. ABDOMEN: Soft nontender without masses, organomegaly or rebound. Bowel sounds normally active. No bruits. GENITALIA: Deferred. EXTREMITIES: No edema. No calf tenderness. Cap refill less than 1.5 seconds. Dorsalis pedis and posterior tibial pulses 3+ and symmetrical. NEUROLOGICAL: GCS 15. Alert and oriented x3. Normal gait. Fluent speech. Cranial nerves II through XII intact. Sensorimotor and cerebellar normal. Normal tone. PSYCHIATRIC: Appropriate affect. Course - Re-evaluation Re-evalutation: 03/25/20 16:45 Reexam at this time shows patient is hemodynamically stable breathing comfortably and has had almost complete resolution of the edema of her lips and has had total resolution of the edema of her eyelids. She appears stable for outpatient management. Findings, clinical impression and plan of treatment have been discussed with patient/family. Understanding of current findings and recommendations has been acknowledged by them and there is agreement regarding disposition and follow-up. - Vital Signs Vital signs: Temp Pulse Resp BP Pulse Ox 98.5 F 93 23 H 147/91 H 97 03/25/20 10:19 03/25/20 10:19 03/25/20 15:01 03/25/20 15:01 03/25/20 15:01 - Laboratory Results Critical Laboratory Results Reviewed: No Critical Results - Radiology Results Critical Radiology Results Reviewed: No Critical Results Critical Care Note - Critical Care Note Total time excluding time spent on procedures (mins): 35 - IV, O2, monitor. IV normal saline. IV Solu-Medrol and Pepcid. IM epinephrine. Discharge - Discharge Clinical Impression: Angioedema Qualifiers: Encounter type: initial encounter Qualified Code(s): T78.3XXA - Angioneurotic edema, initial encounter Condition: Stable Disposition: HOME, SELF-CARE Additional Instructions: Epinephrine An injection of epinephrine (also called adrenalin) is used to treat allergic reactions, asthma, and some other medical conditions. It is a stimulant medication that consticts blood vessels, relaxes smooth muscles such as in the bronchioles of the lung, elevates blood pressure, and increases heart rate. It can temporarily make you feel very nervous and shakey, but it's affects last only a short time, about 15 to 30 minutes at most.Angioedema Angioedema is an allergic swelling of the soft tissues of the body. The lips and mouth are most commonly involved. Medicication allergy is a common cause, especially MARY inhibitor medicine (used for blood pressure control). Food, even something you've eaten frequently, can cause angioedema. In many cases it's not obvious what caused the swelling. The likely cause of your swelling was taking ibuprofen and it is best that you therefore avoid this medicine in the future. Acute treatment may include adrenalin and antihistamines. If the cause is known, you must avoid this food or medicine in the future. If angioedema affects your air passages, it can be life-threatening. Return at once if you develop shortness of breath, faintness, severe pain, inability to swallow, or if swelling worsens.swelling worsens. You will be given an emergency injection device to use if you have recurrent swelling (EpiPen) We are writing you medications for three prescription medications to take. Follow-up with your doctor within the next 2 to 3 days. Return to the emergency department immediately if you have increased swelling again or difficulty swallowing or breathing. Prescriptions: Hydroxyzine HCl [Atarax 10 mg Tablet] 10 mg PO QID 7 Days #20 tablet Prednisone [Deltasone 20 mg Tablet] 2 tab PO DAILY 5 Days tablet Epinephrine [Epipen 2-Dmitriy] 0.3 mg IM ONCE PRN #1 packet PRN Reason: Famotidine [Pepcid 20 mg Tablet] 20 mg PO DAILY 12 Days #12 tablet Referrals: [facility] [Provider Group] - Follow up as needed
[2020-03-25 16:55] VITALS: BP 139/83
== END 2020-03-25 17:03 | disposition home or self-care (01) ==
LOC: ER 10:15
DX: T78.3XXA Angioneurotic edema, initial encounter (principal)
CPT/HCPCS: 99284; 96372; 96374; J0171; J2930; S0028; J3490